=== PATIENT | female | born 1955 | race Caucasian/White ===

== ENCOUNTER 2018-01-23 15:01 | Inpatient (IN) | payer OTHER ==
--- NOTE | 2018-01-23 15:29 | ED Physician Chart ---
ED Chief Complaint/HPI - Patient Information Date Seen:: 01/23/18 Time Seen:: 15:15 Chief Complaint:: Leg Redness History of Present Illness:: onset x 3 days of LE redness, pain, erythema, and swelling; pt denies trauma, H/ As, neck pain, C/P, cough, SOB, Abd. Pain, A/N/V/D/C, fever, chills, or urinary s/s; pt's last tetanus shot: < 5 years; UTD; pt is 10 years post-menopausal Allergies:: Allergies Allergy/AdvReac Type Severity Reaction Status Date / Time No Known Allergies Allergy Verified 01/23/18 15:16 Vitals:: Vital Signs - 8 hr 01/23/18 15:17 Temp 98.1 F HR 62 RR 16 BP 148/42 O2 Sat % 95 Historian:: Patient, Family Member Review:: Nurse's Note Reviewed ED Review of Systems - Review of Systems General/Constitutional: No fever, No chills, No weight loss, No weakness, No diaphoresis, No edema, No loss of appetite Skin: Skin lesions, Rash, No bruising Head: No headache, No light-headedness Eyes: No loss of vision, No pain, No diplopia ENT: No earache, No nasal drainage, No sore throat, No tinnitus Neck: No neck pain, No swelling, No thyromegaly, No stiffness, No mass noted Cardio Vascular: No chest pain, No palpitations, No PND, No orthopnea, No edema Pulmonary: No SOB, No cough, No sputum, No wheezing GI: No nausea, No vomiting, No diarrhea, No pain, No melena, No hematochezia, No constipation, No hematemesis G/U: No dysuria, No frequency, No hematuria, No nacturia Cupola Worker: No vaginal discharge, No abnormal vaginal bleed, No contraction Musculoskeletal: No bone or joint pain, No back pain, No muscle pain Endocrine: Polyuria, Polydipsia Psychiatric: No prior psych history, No depression, No anxiety, No suicidal ideation, No homicidal ideation, No auditory hallucination, No visual hallucination Hematopoietic: No bruising, No lymphadenopathy Allergic/Immuno: No urticaria, No angioedema Neurological: No syncope, No focal symptoms, No weakness, No paresthesia, No headache, No seizure, No dizziness, No confusion, No vertigo ED Past Medical History - Past Medical History Obtainable: Yes Past Medical History: HTN, DM, Dyslipidemia Family History: Diabetes Melitus, HTN Social History: Non Smoker, No Alcohol, No Drug Use, Surgical History: None Psychiatricy History: None Medication: Reviewed Family Medical History - Family Member Mother History Unknown: Yes Ethnicity: Living Status: ED Physical Exam - Physical Examination General/Constitutional: Awake, Well-developed, well-nourished, Alert, No distress, GCS 15, Non-toxic appearing, Ambulatory Head: Atraumatic Eyes: Lids, conjuctiva normal, PERRL, EOMI Skin: Nl inspection, No rash, No skin lesions, No ecchymosis, Well hydrated, No lymphadenopathy Other Skin comments:: + LE Cellulitis; good NV functions ENMT: External ears, nose nl, TM canals nl, Nasal exam nl, Lips, teeth, gums nl , Oropharynx nl, Tonsils nl Neck: Nontender, Full ROM w/o pain, No JVD, No nuchal rigidity, No bruit, No mass, No stridor Respiratory: Nl effort/Exclusion, Clear to Auscultation, No Wheeze/Rhonchi/Rales Cardio Vascular: RRR, No murmur, gallop, rubs, NL S1 S2, Carotid/Femoral/Distal pulses equal bilaterally GI: No tenderness/rebounding/guarding, No organomegaly, No hernia, Normal BS's, Nondistended, No mass/bruits, No McBurney tenderness : No CVA tenderness Extremities: No tenderness or effusion, Full ROM, normal strength in all extremities, No edema, Normal digits & nails Neuro/Psych: Alert/oriented, DTR's symmetric, Normal sensory exam, Normal motor strength, Judgement/insight normal, Mood normal, Normal gait, No focal deficits Misc: Normal back, No paraspinal tenderness ED Labs/Radiology/EKG Results - Lab Results Comments:: Glucose: 243; H/H: + Anemia; LA: Elevated - Radiology Results Comments:: NAD - EKG Interpretations EKG Time:: 15:39 Rate & Rhythm: 59; SB Comments:: RBBB; non-specific st-t changes ED Septic Shock - . Is Septic Shock (SBP<90, OR Lactate>4 mmol\L) present?: No - <6hrs of presentation: Vital Signs: Vital Signs - 8 hr 01/23/18 15:17 Temp 98.1 F HR 62 RR 16 BP 148/42 O2 Sat % 95 ED Reassessment (Disposition) - Reassessment Reassessment Condition:: Improved - Diagnosis Diagnosis:: Anemia; Hyperglycemia; DM; Cellulitis; Sepsis - Aftercare/Follow up Instructions Aftercare/Follow-Up Instructions:: Counseled pt regarding lab results/diagnosis & need follow up, Counseled pt & family regarding lab results/diagnosis & need follow up - Patient Disposition Discharge/Transfer:: Acute Care w/in this hosp Accepting Physician:: Dr. Art Time Called:: 1700 Time Responded:: 17:00 Admitted to:: Med/Surg Spoke to:: Dr. Art Admitting Medical Physician:: Dr. Art Condition at Disposition:: Stable, Improved
[2018-01-23 15:56] LABS: % BASOPHILS 0.6 % (0.0-2.0); % EOSINOPHILS 3.5 % (0.0-5.0); % LYMPHOCYTES 34.7 % (20.0-50.0); % MONOCYTES 6.6 % (2.0-10.0); % NEUTROPHILS 54.6 % (40.0-80.0); EOSINOPHILE ABSOLUTE 0.2 Th/cmm (0.1-0.4); HEMOGLOBIN 11.4 gm/dL (12-16); LYMPHOCYTE ABSOLUTE 1.7 Th/cmm (1.5-3.0); MEAN CORPUSCULAR HEMOGLOBIN 29.5 pg (27.0-31.0); MEAN CORPUSCULAR HGB CONC 33.6 pg (28.0-36.0); MEAN PLATELET VOLUME 7.6 fl; MONOCYTE ABSOLUTE 0.3 Th/cmm (0.3-1.0); NEUTROPHILE ABSOLUTE 2.7 Th/cmm (1.8-8.0); PLATELET COUNT 204 Th/cmm (150-400); RED BLOOD COUNT 3.86 Mil/cmm (3.80-5.10); RED CELL DISTRIBUTION WIDTH 12.2 % (11.5-20.0); WHITE BLOOD COUNT 4.9 Th/cmm (4.8-10.8)
[2018-01-23 16:00] LABS: INR 1.02 (0.5-1.4); PROTHROMBIN TIME (TEST) 10.6 SECONDS (9.5-11.5)
[2018-01-23 16:05] LABS: ALB/GLOB RATIO 1.1 (1.0-1.8); ALBUMIN 3.6 gm/dL (3.7-5.3); ALKALINE PHOSPHATASE 63 U/L (34-104); ANION GAP 11.9 (7.0-16.0); BILIRUBIN,TOTAL 0.4 mg/dL (0.3-1.0); BUN - UREA NITROGEN 12 mg/dL (7-25); CALCIUM SERUM 9.3 mg/dL (8.6-10.3); CARBON DIOXIDE 22.7 mEq/L (21.0-31.0); CHLORIDE 107 mEq/L (98-107); CREATININE - SERUM 0.7 mg/dL (0.6-1.2); CREATININE KINASE 78 U/L (30-223); GFR AFRICAN-AMERICAN > 60.0 ml/min (>90); GFR NON AFRICAN-AMERICAN > 60.0 ml/min; GLUCOSE 243 mg/dL (70-105); POTASSIUM SERUM 3.6 mEq/L (3.5-5.1); SGOT 15 U/L (13-39); SGPT/ALT 17 U/L (7-52); SODIUM SERUM 138 mEq/L (136-145); TOTAL PROTEIN,SERUM 6.8 gm/dL (6.0-8.3)
[2018-01-23 16:07] LABS: TROP I < 0.01 ng/mL (0.01-0.05)
[2018-01-23] MEDS ORDERED: cefTRIAXone 1 GM in Sodium Chloride 0.9% 50 ML IV ONE (17:15)
[2018-01-23 20:13] LABS: A1C % 7.7 % (4.0-6.0)
--- NOTE | 2018-01-23 20:42 | History & Physical ---
ADMIT DATE: 01/23/2018 CHIEF COMPLAINT: Pain and swelling of lower extremities for a few days' duration. HISTORY OF PRESENT ILLNESS: The patient is a 62-year-old female with long history of diabetes mellitus, hypertension, varicose vein on lower extremities; presented to the Emergency Room with swollen and pain on the lower extremities, evaluated by the ER physician. Initial workup sent for cellulitis of both lower extremities, admitted to the hospital, started on antibiotic. No fever, no chills, no nausea, no vomiting. PAST MEDICAL HISTORY: Significant for diabetes mellitus, hypertension, and varicose vein of lower extremities. PAST SURGICAL HISTORY: Cholecystectomy. ALLERGIES: None. MEDICATIONS: Follow admission reconciliation. SOCIAL HISTORY: No smoking, no alcohol, no drugs. FAMILY HISTORY: Noncontributory. REVIEW OF SYSTEMS: RENAL SYSTEM: No history of chronic renal disorder. CARDIOVASCULAR SYSTEM: No coronary artery disease. ENDOCRINE SYSTEM: She has history of diabetes mellitus. GASTROINTESTINAL SYSTEM: No upper or lower gastrointestinal bleed. NEUROLOGICAL SYSTEM: No seizure disorder. MUSCULOSKELETAL SYSTEM: ____ muscular dystrophy. HEMATOLOGICAL SYSTEMS: No bleeding tendencies. RESPIRATORY SYSTEM: No asthma. GENITOURINARY: No dysuria or hematuria. PHYSICAL EXAMINATION: GENERAL: She is awake, alert, oriented. VITAL SIGNS: Temperature 98.1, heart rate 62, and blood pressure 148/42. HEENT: Normocephalic. Pupils reactive to light and accommodation. Sclerae clear. NECK: Supple. Negative for lymphadenopathy, JVD, or bruit. CHEST: Air bilaterally normal. No rhonchi or wheezing. HEART: S1, S2 normal. No gallop rhythm. ABDOMEN: Soft, bowel sounds positive. EXTREMITIES: Significant for mild redness of lower extremities. NEUROLOGIC: Awake, alert, and oriented. No focal motor or sensory deficit. Cranial nerves II through XII is intact. LABORATORY DATA: White blood 4.9, hemoglobin 11.4, hematocrit 34.0, and platelet 204. Sodium 138, potassium 3.6, BUN 12, creatinine 0.6, lactic acid 2.04. Albumin 3.6. ASSESSMENT: 1. Cellulitis of both lower extremities. 2. Hypertension. 3. Diabetes mellitus. 4. Varicose vein of lower extremities. PLAN: The patient is admitted to the hospital under Dr. Art's service, started on IV antibiotic, ate CCHO diet, sliding scale with regular insulin coverage. Metformin 850 twice a day, lisinopril 10 mg once a day, Lovenox 40 subcutaneous daily, Tylenol 650 q. 4h. for pain. The patient is a full code. JOB# [id number]
[2018-01-23 23:31] LABS: URINE MICROSCOPIC INDICATED? YES; URINE SOURCE MIDSTREAM
[2018-01-23 23:35] LABS: URINE BILIRUBIN NEGATIVE (NEGATIVE); URINE BLOOD TRACE (NEGATIVE); URINE GLUCOSE (UA) NEGATIVE (NEGATIVE); URINE KETONE NEGATIVE (NEGATIVE); URINE LEUKOCYTE ESTERASE SMALL (NEGATIVE); URINE NITRATE NEGATIVE (NEGATIVE); URINE PH 6.5 (4.6 - 8.0); URINE PROTEIN NEGATIVE (NEGATIVE); URINE UROBILINOGEN 0.2 E.U./dL (0.2 - 1.0)
[2018-01-23 23:45] LABS: URINE CLARITY CLEAR (CLEAR); URINE COLOR YELLOW
[2018-01-23 23:48] LABS: URINE BACTERIA FEW /hpf (NONE SEEN); URINE EPITHELIAL CELLS FEW /lpf (FEW); URINE RBC 0-2 /hpf (0-5)
[2018-01-23] MEDS ORDERED: Piperacillin Sodium/Tazobact 3.375 gm Vial IV ONE (23:55)
[2018-01-24 00:34] VITALS: BP 121/76
[2018-01-24] MEDS ORDERED: Pneumococcal Vaccine 0.5 mL Vial IM ONE (00:58)
[2018-01-24] MEDS ORDERED: Piperacillin Sodium/Tazobact 3.375 gm Vial IV ONE (03:46)
--- NOTE | 2018-01-24 07:23 | Diagnostic Imaging Report ---
Bilateral lower extremity DVT study HISTORY: Leg swelling and pain COMPARISON: None Technique: Longitudinal and transverse sonographic images of the bilateral lower extremity veins were obtained with doppler analysis. FINDINGS: There is normal compressibility, augmentation and phasicity of the bilateral common femoral, superficial femoral, popliteal, and posterior tibial veins. No thrombus is visualized. IMPRESSION: No evidence of thrombus within the bilateral lower extremity veins.
[2018-01-24] MEDS ORDERED: Enoxaparin 40 mg/0.4 mL 0.4mL Syr SUBQ SCH (09:00)
[2018-01-24] MEDS ORDERED: VTE Chemical Prophylaxis Screen/Admission MC PRN (09:10)
[2018-01-24] MEDS: INSULIN ASPART SLIDING SCALE 100 UNITS/ML UNIT SUBQ SCH ×3 (09:43→17:58)
[2018-01-24] MEDS ORDERED: Probiotic Screen MC PRN (11:21)
[2018-01-24] MEDS ORDERED: INSULIN HUMAN REGULAR 100 UNITS/ML UNIT SUBQ ONE (14:01)
--- NOTE | 2018-01-24 19:39 | Discharge Summary ---
DATE OF DISCHARGE: 01/24/2018 FINAL DIAGNOSES: 1. Cellulitis of lower extremities. 2. Diabetes mellitus. 3. Hypertension. 4. Varicose veins of lower extremities. REVIEW OF HISTORY: The patient is a 62-year-old female with long history of hypertension, diabetes mellitus, varicose veins of the lower extremity, presented to the Emergency Room with swollen, redness of lower extremities. She had workup significant for possible cellulitis, admitted to the hospital, started on antibiotic. PHYSICAL EXAMINATION: On admission: GENERAL: She was awake, alert, oriented. VITAL SIGNS: Temperature 98.1, heart rate 62, blood pressure 148/42. CHEST: Clear to auscultation. ABDOMEN: Soft, bowel sounds positive. EXTREMITIES: Significant for varicose veins, mild redness. LABORATORY DATA: White blood cell 4.9, hemoglobin 11.4, hematocrit 34. Sodium 138, potassium 3.6. The patient started on IV antibiotic, 1800 kilocalorie diet, sliding scale with regular insulin coverage. COURSE OF HOSPITALIZATION: On 2nd day of hospitalization, the patient remained stable clinically. The patient was feeling well. No redness, no pain, no swelling of lower extremities. CHEST: Clear to auscultation. ABDOMEN: Soft, bowel sounds positive. EXTREMITIES: No edema. DISPOSITION: The patient discharged home to follow up with primary care physician as outpatient. CONDITION ON DISCHARGE: Stable. MEDICATIONS: Follow discharge reconciliation. JOB# [id number]
[2018-01-25] MEDS ORDERED: Lactobacillus Rhamnosus GG 15 Billion CFU CAP.SPRINK PO SCH (09:00)
== END 2018-01-24 19:19 | disposition home or self-care (01) | DRG 720 ==
LOC: ER 15:01 → MSI 18:40
PROVIDERS: ADMIT Family Medicine; ATTEND Family Medicine
DX: A41.9 Sepsis, unspecified organism (principal); E11.65 Type 2 diabetes mellitus with hyperglycemia; L03.116 Cellulitis of left lower limb; I10 Essential (primary) hypertension; L03.115 Cellulitis of right lower limb; I83.93 Asymptomatic varicose veins of bilateral lower extremities; E78.5 Hyperlipidemia, unspecified; D64.9 Anemia, unspecified; Z83.3 Family history of diabetes mellitus; Z82.49 Family history of ischemic heart disease and other diseases of the circulatory system; Z90.49 Acquired absence of other specified parts of digestive tract; Z23 Encounter for immunization
CPT/HCPCS: 36415-UA; 80053-TC; 81001-TC; 82550-TC; 82948-90; 83036-90; 83605; 84484-TC; 85025-TC; 85610-TC; 85730-TC; 93005; 93970-TC-50; J0696; J1650; J1815; J2405; J2543